=== PATIENT | male | born 1965 | race Caucasian/White ===

== ENCOUNTER 2021-07-02 16:12 | Emergency (ER) | payer OTHER ==
[~2021-07-02] VITALS: Ht 175.2 cm; Wt 102.0 kg
[2021-07-02] MEDS ORDERED: morphine INJ 10 MG/ML 1ML (SYR OR VIAL) IVP STA (16:38)
[2021-07-02] MEDS ORDERED: TETANUS,DIPTH,PERTUSS P/F (BOOSTRIX) 0.5 ML VIAL IM ONE (16:45)
[2021-07-02] MEDS ORDERED: ONDANSETRON 4 MG/2 ML (SDV) Z0FRAN IVP ONE (16:45)
[2021-07-02] MEDS ORDERED: ceFAZolin INJECTION 1,000 MG in WATER (STERILE) FOR INJECTION 10 ML IV ONE (16:45)
[2021-07-02] MEDS ORDERED: LIDOCAINE 1% INJ 20 ML 20 ML VIAL INJ ONE (17:00)
--- NOTE | 2021-07-02 17:06 | Diagnostic Imaging Report ---
CLINICAL HISTORY: Large laceration on the dorsal aspect of the left hand. COMPARISON: None. TECHNIQUE: Two views of the left hand. FINDINGS: There is no acute fracture or dislocation of the left hand. Alignment is anatomic. The imaged joint spaces are preserved. Prominent soft tissue laceration is seen along the dorsum of the left hand. A small amount of radiopaque debris is seen overlying the mid to distal metacarpals of the left hand. IMPRESSION: 1. No acute fracture or dislocation is seen in the left hand. 2. Prominent soft tissue laceration along the dorsum of the left hand with a small amount of radiopaque material overlying the mid to distal left metacarpals. Dictated by: Dictated on workstation # [id number]
--- NOTE | 2021-07-02 17:07 | ED Upper Extremity ---
General Chief Complaint: Laceration Stated Complaint: LT HAND LAC Source: patient Exam Limitations: no limitations History of Present Illness Date Seen by Provider: Jul 02, 2021 Time Seen by Provider: 16:00 Initial Comments Patient is a right-handed patient is a 55-year-old right-handed male presents with laceration/saw injury to his left extensor hand. Injury occurred just prior to ED arrival. On exam, the patient has 12 cm curvilinear laceration extending obliquely from proximal ulnar surface to the distal radial aspect of the hand. Wound is gaping and clean with multiple frayed tendons. Bleeding is controlled. The patient has inability to extend his fourth and fifth digits. Injury occurred just prior to ED arrival. Date of last tetanus shot is unknown. Patient has not had anything to eat or drink for 4 hours. Onset: just prior to arrival Severity: severe Pain/Injury Location: left hand Method of Injury: incised Modifying Factors: Improves With Movement Allergies and Home Medications Allergies Coded Allergies: No Known Drug Allergies (Unverified , 07/02/21) Patient Home Medication List Home Medication List Reviewed: Yes Review of Systems Constitutional: no symptoms reported, see HPI Musculoskeletal: see HPI Psychiatric/Neurological: See HPI Past Bebrejc-Eaepvq-Svaexv Hx Patient Social History Tobacco Use?: Yes Tobacco type used: Cigarettes Smoking Status: Current Everyday Smoker Use of E-Cig and/or Vaping dev: No Substance use?: No Alcohol Use?: Yes Alcohol type: Beer Alcohol Frequency: Couple times a week Pt feels they are or have been: No Physical Exam Vital Signs Capillary Refill : Less Than 3 Seconds Height, Weight, BMI Height: '" Weight: lbs. oz. kg; BMI Method: General Appearance: mild distress (scondary to pain) Shoulder: normal inspection, non-tender Hand: laceration (12 cm curvilinear laceration extending obliquely from proximal ulnar surface of the extensor hand to the distal radial aspect of the hand. Wound is gaping and clean with multiple frayed tendons. Bleeding is cont rolled) Progress/Results/Core Measures Results/Orders My Orders Orders - ALEXA CAMPA DO Hand 2 View Left (07/02/21 16:38) Dipht,Pertuss(Acell),Tet Adult (Boostrix (07/02/21 16:45) Morphine Injection (Morphine Injection (07/02/21 16:38) Ondansetron Injection (Zofran Injectio (07/02/21 16:45) Cefazolin Injection (Ancef Injection) (07/02/21 16:45) Lidocaine 1% Inj 20 Ml (Xylocaine 1% Inj (07/02/21 17:00) Departure Communication (Admissions) X-ray left hand: No foreign body or fracture Dr. Zapata, on-call hand surgeon, agrees to accept care of patient on an outpatient basis. Recommendations are for irrigation, loose closure, splinting with fingers held in flexion, sling with office contact tomorrow to arrange for follow-up later this week. Wound cleansed and loosely closed. Plan of care discussed with patient in detail. Patient verbalizes understanding and agreement discharge instructions prior to departure. Impression Primary Impression: Laceration of left hand with tendon involvement excluding fingers Disposition: 01 HOME, SELF-CARE Condition: Stable Departure-Patient Inst. Decision time for Depature: 17:05 Referrals: NO,LOCAL PHYSICIAN (PCP/Family) Primary Care Physician Add. Discharge Instructions: Please wear splint and sling. Keep wound clean dry and covered at all times. Take hydrocodone as needed for pain and complete full course of antibiotics. Dr. Zapata, hand surgeon from [facility], will contact you tomorrow to arrange for office follow-up for evaluation for surgical repair of tendon lacerations. If you have not been contacted by tomorrow afternoon you may contact Dr. Zapata's nurse Brittany at [phone]. All discharge instructions reviewed with patient and/or family. Voiced understanding. ALEXA CAMPA DO Jul 02, 2021 17:07
[2021-07-02] MEDS ORDERED: CEPH500T PO ×3 (17:11→17:14)
[2021-07-02] MEDS ORDERED: ACHD5005 PO ×3 (17:11→17:14)
[2021-07-02 18:08] VITALS: BP 155/89
[2021-07-03] MEDS ORDERED: ACHD5005 PO (09:53)
== END 2021-07-02 17:59 | disposition home or self-care (01) ==
LOC: ER FS 16:13
DX: S66.922A Laceration of unspecified muscle, fascia and tendon at wrist and hand level, left hand, initial encounter (principal); F17.210 Nicotine dependence, cigarettes, uncomplicated; Z23 Encounter for immunization; X58.XXXA Exposure to other specified factors, initial encounter
CPT/HCPCS: 29125; 73120; 90715